=== PATIENT | male | born 1985 | race Caucasian/White ===

== ENCOUNTER 2017-07-07 18:01 | Emergency (ER) | payer SELFPAY ==
[~2017-07-07] VITALS: Ht 175.3 cm; Wt 97.5 kg
[2017-07-07 18:01] VITALS: BP_SYST 154
[2017-07-07] MEDS ORDERED: ONDANSETRON 4 MG ODT TAB PO ONE (19:00)
[2017-07-07] MEDS ORDERED: MORPHINE SULFATE 10 MG/ML VIAL IM ONE (19:00)
[2017-07-07] MEDS ORDERED: KETOROLAC TROMETHAMINE 60 MG/2 ML VIAL IM ONE (20:30)
[2017-07-07 21:13] VITALS: BP_SYST 145
== END 2017-07-07 21:13 | disposition home or self-care (01) ==
LOC: EDBD 18:01 → SED 18:01
DX: S16.1XXA Strain of muscle, fascia and tendon at neck level, initial encounter (principal); S09.90XA Unspecified injury of head, initial encounter; R10.84 Generalized abdominal pain; R03.0 Elevated blood-pressure reading, without diagnosis of hypertension; Z88.2 Allergy status to sulfonamides; Z90.89 Acquired absence of other organs; V89.2XXA Person injured in unspecified motor-vehicle accident, traffic, initial encounter; Y93.89 Activity, other specified; Y92.89 Other specified places as the place of occurrence of the external cause; Y99.8 Other external cause status
CPT/HCPCS: 70450; 72125; 74176; 96372; 99284; J1885; J2270; Q0162